=== PATIENT | male | born 1965 | race Caucasian/White ===

== ENCOUNTER → 2022-04-17 09:25 | Outpatient (BNVA) | payer OTHER, MEDICAID, SELFPAY | PROVIDERS: Visit Provider Family Medicine | DX: E11.22 Type 2 diabetes mellitus with diabetic chronic kidney disease (principal); N18.30 Chronic kidney disease, stage 3 unspecified; Z79.4 Long term (current) use of insulin; E11.9 Type 2 diabetes mellitus without complications; I10 Essential (primary) hypertension; E78.5 Hyperlipidemia, unspecified; K21.9 Gastro-esophageal reflux disease without esophagitis; Z23 Encounter for immunization; Z86.73 Personal history of transient ischemic attack (TIA), and cerebral infarction without residual deficits | CPT/HCPCS: 80053; 80061; 82043; 83036; 85025 ==

== ENCOUNTER 2022-04-19 08:21 | Emergency (ER) | payer MEDICARE, MEDICAID, SELFPAY ==
[2022-04-19 08:35] VITALS: BP 159/78; PULSE 56; RESP 18; TEMP 36.5; O2SAT 96; BMI 30.8
--- NOTE | 2022-04-19 08:54 | XR_ITS ---
WS: [id number] Exam: XR ribs RT mn 3V w CXR1V [id number] Date/Time of Exam: 04/19/2022 9:34 AM Reason For Exam: pain/cough No acute right rib fracture. The right lung is fully inflated and clear. No pleural or pulmonary reac tive changes are seen. There appear to be epidural catheters in the thoracic spinal canal. The lungs are bilaterally clear. Normal cardiomediastinal silhouette. No pleural effusions. XR/XR ribs RT mn 3V w CXR1V [id number] IMPRESSION: 1. No acute right rib fracture or pneumothorax. 2. No acute cardiopulmonary process identified.
--- NOTE | 2022-04-19 08:54 | ED_ITS ---
HPI - General Adult General: Chief complaint: General Medical Stated complaint: Right side chest/ rib pain Time Seen by Provider: 04/19/22 08:26 Source: patient Mode of arrival: ambulatory History of Present Illness: 56-year-old male presents emergency room with complaint of right lower rib pain. He has a little cough with it as well as not particularly been short of breath began 2 weeks ago when he hit his lower ribs on a washer while bending over. It seemed to get better and then worsened again. Denies any hemoptysis no fever sweats or chills no left-sided chest pain pain is localized and reproducible with palpation of the right lower lip ribs. There is no radiation. Other than movement palpation has not noticed anything that exacerbates or relieves it. Onset (ago): day(s) Location: chest Radiation: non-radiation Severity: moderate Quality: sharp Pain Consistency: constant Relieving factors: rest Exacerbating factors: movement Associated symptoms: Reports chest pain; Deny confusion, cough, diaphoresis, decreased appetite, dyspnea, fevers/chills, headache(s), malaise, nausea, rash, palpitations, seizures, short of breath, syncope or vomiting Treatments prior to arrival: none Review of Systems Const: Denies: fever(s), fatigue, malaise or diaphoresis ENMT: Denies: throat pain, ear or mastoid pain, nasal discharge or nasal congestion Card: Reports: chest pain; Denies: palpitations, irregular heart rhythm, edema or syncope Resp: Denies: dyspnea GI: Denies: abdominal pain, nausea or vomiting : Denies: flank pain, difficulty urinating, dysuria, urinary frequency or urinary urgency Musc: Denies: neck pain or back pain Skin/Breast: Denies: rash Neuro: Denies: headache(s) or confusion PFS ED PFSH: Medical History (Updated 04/19/22 @ 10:41 by Red Nettles DO) Asthma Benign essential HTN CAD (coronary artery disease) Diabetic neuropathy DM II (diabetes mellitus, type II), controlled Dyslipidemia History of stroke History of TIA (transient ischemic attack) Muscle cramps Proteinuria Seasonal allergies Stage 3b chronic kidney disease (CKD) Surgical History (Updated 03/20/22 @ 10:51 by Rossi Abbasi DO) H/O arthroscopy of left knee History of ankle surgery Right History of appendectomy History of coronary artery stent placement History of hernia repair Right inguinal History of tonsillectomy Hx laparoscopic cholecystectomy Social History (Updated 03/20/22 @ 10:40 by Yamilet Holman LPN) Smoking and tobacco status: current every day smoker Alcohol intake: never Caregiver/support person: Yes Lives independently: Yes Household members: spouse Physical Exam Const: COMMON NORMALS: no acute distress GENERAL APPEARANCE: cooperative and comfortable ORIENTATION/CONSCIOUSNESS: Yes awake, Yes oriented to person, Yes oriented to place and Yes oriented to time HENMT: COMMON NORMALS: normocephalic, atraumatic and hearing grossly normal bilaterally HEAD & SCALP: normocephalic and atraumatic Chest: OTHER: Reproducible pain of the lower anterior ribs at the axillary line on the right only. No crepitus no adventitious lung sounds auscultated in that region Resp: COMMON NORMALS: normal respiratory effort, No retractions, No use of accessory muscles and clear to auscultation bilaterally AUSCULTATION: clear to auscultation bilaterally Cardio: COMMON NORMALS: regular rate, regular rhythm and No murmurs present (Cardio) RATE: regular rate RHYTHM: regular rhythm GI: COMMON NORMALS: Soft to palpation and No hepatosplenomegaly present AUSCULTATION: Yes normoactive bowel sounds PALPATION: Yes Soft to palpation, No Tenderness to palpation present (GI), No Guarding due to palpation present (GI) and Yes No hepatosplenomegaly present Extremity: COMMON NORMALS: normal to inspection, capillary refill normal, no clubbing, cyanosis or edema, no calf tenderness and no pedal edema Neuro: SENSORIUM/ORIENTATION: Yes oriented to person, Yes oriented to place and Yes oriented to time Skin: COMMON NORMALS: no rashes or lesions noted GENERAL SKIN EXAM: no rashes or lesions noted Course Vital Signs: Vital signs: Vital Signs Temperature 97.7 F 04/19/22 11:02 Pulse Rate 62 04/19/22 11:02 Respiratory Rate 18 04/19/22 11:02 Blood Pressure 140/70 04/19/22 11:02 Pulse Oximetry 96 04/19/22 11:02 [facility] - General Adult Medical Decision Making No evidence of rib fracture pneumonia pneumothorax. EKG is unremarkable. Rib x-rays were negative for fracture we will discharge home ice anti-inflammatories follow-up with primary care if not improving Medical Records I reviewed the patient's medical records. Lab Data I reviewed the patient's lab results. Radiology Impressions Ribs X-Ray 04/19/22 08:54 IMPRESSION: 1. No acute right rib fracture or pneumothorax. 2. No acute cardiopulmonary process identified. Discharge Plan Discharge Patient Disposition: Home Clinical Impression: Rib pain on right side Condition: Stable Prescriptions: New diclofenac sodium 75 mg tablet,delayed release (DR/EC) 75 mg PO Q12H PRN (Reason: pain) Qty: 20 0RF No Action carvedilol 25 mg tablet 25 mg PO DAILY Rx Instructions: must administer with a meal/food Farxiga 10 mg tablet 10 mg PO DAILY hydralazine 50 mg tablet 50 mg PO BID clonidine HCl 0.2 mg tablet 0.2 mg PO BID rosuvastatin 40 mg tablet 40 mg PO DAILY clopidogrel 75 mg tablet 75 mg PO DAILY isosorbide dinitrate 30 mg tablet 30 mg PO BID Rx Instructions: allow nitrate-free interval of 12-14 hrs per 24-hr period ezetimibe 10 mg tablet 10 mg PO DAILY mecobalamin (vitamin B12) 1,000 mcg tablet,chewable 1,000 mcg PO DAILY fluticasone propionate 50 mcg/actuation spray,suspension 2 spray intranasal DAILY Rx Instructions: administer into each nostril nitroglycerin [Nitrostat] 0.3 mg tablet, sublingual 0.3 mg sublingual Q5M PRN Rx Instructions: do not exceed 3 doses per episode insulin glargine [Lantus Solostar U-100 Insulin] 100 unit/mL (3 mL) insulin pen See Rx Instructions SUBCUT BID Rx Instructions: 10units in AM and 23 units at night subcutaneously twice a day; insulin aspart U-100 [Novolog Flexpen U-100 Insulin] 100 unit/mL (3 mL) insulin pen 8 unit SUBCUT TID Ozempic 0.25 mg or 0.5 mg(2 mg/1.5 mL) pen injector 0.5 mg SUBCUT .weekly montelukast 10 mg tablet 10 mg PO DAILY Qty: 30 3RF atenolol 50 mg tablet 50 mg PO DAILY Qty: 30 0RF lisinopril 40 mg tablet 40 mg PO DAILY Qty: 30 0RF gabapentin 300 mg capsule 300 mg PO TID Qty: 90 0RF albuterol sulfate [ProAir HFA] 90 mcg/actuation HFA aerosol inhaler 2 puff inhalation QID PRN (Reason: shortness of breath or wheezing) Qty: 8.5 0RF metoclopramide HCl [Reglan] 10 mg tablet 10 mg PO DAILY PRN (Reason: nausea and vomiting) Qty: 30 0RF cyclobenzaprine 10 mg tablet 10 mg PO TID PRN (Reason: muscle spasm) Qty: 90 0RF flu vacc [id number] 6mos up(PF) 60 mcg (15 mcg x 4)/0.5 mL syringe 0.5 ml IM ONCE PRN (Reason: vaccine) Qty: 0.5 0RF (DME) Blood Glucose Test Strip See Rx Instructions .MEDSUPPLY Qty: 100 5RF Rx Instructions: As directed (DME) blood-glucose meter Misc See Rx Instructions .MEDSUPPLY Qty: 1 0RF Rx Instructions: test qid (DME) lancets 25 gauge misc See Rx Instructions .MEDSUPPLY Qty: 100 5RF Rx Instructions: As directed omeprazole 40 mg capsule,delayed release(DR/EC) 40 mg PO DAILY Qty: 30 0RF Discharge Orders: Discharge ED (Routine); Ordered 04/19/22 Ordered By: Red Nettles Discharge Diet: Usual diet Discharge Activity: Resume usual activity Patient Instructions: Opioid Safety, Pain Management Activity Restrictions/Additional Instructions: Rest ice anti-inflammatories as needed. Coding Level of Care Code ED Engagement Quality Consultant for Laila Dominguez
--- NOTE | 2022-04-19 08:55 | ECG_ITS ---
[facility] Test Date: 2022-04-19 Pat Name: Sarbjit Fletcher Department: Room: Gender: Male Consulting Practice Director: : 1965 Requested By: Red Pizarro Order Number: [id number] Marely MD: Christina Gonzáles M.D. Measurements Intervals [place] Rate: 59 P: 56 IN: 156 QRS: 19 QRSD: 94 T: 14 QT: 387 QTc: 385 Interpretive Statements SINUS BRADYCARDIA NONSPECIFIC T-WAVE ABNORMALITY No previous ECG available for comparison Electronically Signed On 04-19-2022 18:04:30 CDT by Christina Gonzáles M.D. [id number]
[2022-04-19] MEDS: ketorolac 30 mg/mL INJ IVP (09:11)
[2022-04-19 09:21] VITALS: BP 159/78; PULSE 56; RESP 18; TEMP 36.5; O2SAT 96
[2022-04-19 11:02] VITALS: BP 140/70; PULSE 62; RESP 18; TEMP 36.5; O2SAT 96
== END 2022-04-19 11:03 | disposition home or self-care (01) ==
PROVIDERS: Emergency Provider Family Medicine
DX: R07.81 Pleurodynia (principal); Z79.02 Long term (current) use of antithrombotics/antiplatelets; Z79.4 Long term (current) use of insulin; I25.10 Atherosclerotic heart disease of native coronary artery without angina pectoris; E11.40 Type 2 diabetes mellitus with diabetic neuropathy, unspecified; E78.5 Hyperlipidemia, unspecified; Z86.73 Personal history of transient ischemic attack (TIA), and cerebral infarction without residual deficits; I12.9 Hypertensive chronic kidney disease with stage 1 through stage 4 chronic kidney disease, or unspecified chronic kidney disease; E11.22 Type 2 diabetes mellitus with diabetic chronic kidney disease; N18.32 Chronic kidney disease, stage 3b; F17.210 Nicotine dependence, cigarettes, uncomplicated
CPT/HCPCS: 71101; 93005; 96374; 99284; J1885

== ENCOUNTER → 2022-04-25 12:52 | Outpatient (BNVA) | payer MEDICARE, MEDICAID, SELFPAY | PROVIDERS: PCP Family Medicine; Referring Provider Family Medicine; Visit Provider Nurse Practitioner | DX: I69.310 Attention and concentration deficit following cerebral infarction (principal); G47.33 Obstructive sleep apnea (adult) (pediatric); F17.200 Nicotine dependence, unspecified, uncomplicated | CPT/HCPCS: 99204 ==

== ENCOUNTER → 2022-05-08 10:10 | Outpatient (BNVA) | payer MEDICARE, MEDICAID, SELFPAY | PROVIDERS: PCP Family Medicine; Referring Provider Nurse Practitioner; Visit Provider Specialist | DX: R41.82 Altered mental status, unspecified (principal) | CPT/HCPCS: 95812 ==

== ENCOUNTER → 2022-06-14 11:47 | Outpatient (BNVA) | payer MEDICARE, MEDICAID, SELFPAY | PROVIDERS: PCP Family Medicine; Visit Provider Internal Medicine | DX: I25.10 Atherosclerotic heart disease of native coronary artery without angina pectoris (principal); I12.9 Hypertensive chronic kidney disease with stage 1 through stage 4 chronic kidney disease, or unspecified chronic kidney disease; E11.22 Type 2 diabetes mellitus with diabetic chronic kidney disease; F17.200 Nicotine dependence, unspecified, uncomplicated; N18.32 Chronic kidney disease, stage 3b; Z79.4 Long term (current) use of insulin; E78.5 Hyperlipidemia, unspecified; I71.40 Abdominal aortic aneurysm, without rupture, unspecified; Z86.73 Personal history of transient ischemic attack (TIA), and cerebral infarction without residual deficits | CPT/HCPCS: 93005; 99204 ==

== ENCOUNTER 2022-06-27 08:03 | Outpatient (CLI) | payer MEDICARE, MEDICAID, SELFPAY ==
--- NOTE | 2022-06-27 08:30 | USCV_ITS ---
Sarbjit Fletcher Age: 57 Gender: M : 1965 Exam Date: 06/27/2022 08:15 Ordering Phys: Gerard Tubbs M.D ([email or web address]) Technologist: MARY [place] [facility] [place]: AAA HISTORY: Diameter (cm) AP x Transverse x Length Velocity (cm/s) Waveform Prox Aorta: 1.96 x 2.30 x 77.30 Triphasic Mid Aorta: 3.32 x 3.43 x 6.42 66.90 Triphasic Distal Aorta: 1.89 x 2.57 x 87.60 Triphasic Right Iliac Prox: 1.30 x 1.39 x 218.20 Triphasic Left Iliac Prox: 1.07 x 1.42 x 200.00 Triphasic Stent Prox Landing x x Aneurysmal Sac Max x x Lt Lat Sac Dim Rt Lat Sac Dim Stent Dist Landing x x Right Iliac Stent x x Left Iliac Stent x x Right Renal Art Left Renal Art FINDINGS: CONCLUSIONS Aneurysmal Mid abdominal aorta measuring 3.3 x 3.4 x 6.4cm AP x transverse x CC. This could be further evaluated with CTA. Normal iliac arteries Zane Fulton MD (Electronically Signed) Final Date: 27 June 2022 08:40 S
== END 2022-06-27 08:04 | disposition home or self-care (01) ==
LOC: RAD 08:05
PROVIDERS: PCP Family Medicine; Visit Provider Internal Medicine
DX: I71.40 Abdominal aortic aneurysm, without rupture, unspecified (principal)
CPT/HCPCS: 93978

== ENCOUNTER → 2022-07-09 08:48 | Outpatient (BNVA) | payer MEDICARE, MEDICAID, SELFPAY | PROVIDERS: PCP Family Medicine; Visit Provider Podiatrist Foot & Ankle Surgery | DX: I73.9 Peripheral vascular disease, unspecified (principal); B35.1 Tinea unguium; G62.9 Polyneuropathy, unspecified; M21.611 Bunion of right foot; M21.612 Bunion of left foot; M20.41 Other hammer toe(s) (acquired), right foot; M20.42 Other hammer toe(s) (acquired), left foot; L84 Corns and callosities; E11.8 Type 2 diabetes mellitus with unspecified complications; Z79.4 Long term (current) use of insulin | CPT/HCPCS: 11056; 11721; 99204 ==

== ENCOUNTER 2022-07-12 09:16 | Outpatient (CLI) | payer MEDICARE, MEDICAID, SELFPAY ==
--- NOTE | 2022-07-12 09:45 | CT_ITS ---
WS: [id number] LDCT LUNG CANCER SCREENING HISTORY: screening TECHNIQUE: Axial imaging performed from the apices to 1 cm below the costophrenic angles. Coronal and sagittal reformats are submitted with axial MIP series. All CT scans at [facility] use at least one of these dose optimization techniques: automated exposure control; mA and/or kV adjustment per patient size (includes targeted exams where dose is matched to clinical indication); or iterativ e reconstruction. DLP: 73.71 mGy.cm DIvol: Mean CTDIvol: 1.60 (mGy) COMPARISON: None available. Diagnostic quality: Satisfactory Lung Nodules: Multiple subcentimeter pulmonary nodules. Largest nodule 7 mm RIGHT upper lobe along th e fissure. These are typically benign. 6 mm pleural-based nodule along the peripheral fissure RIGHT m id lung. Additional fissure along the minor fissure measures 5 mm. LEFT lower lobe nodule measures 5 mm. Endobronchial soft tissue distal LEFT trachea. Lungs: Mild interstitial peripheral thickening. Heart: Moderate cardiomegaly. No pericardial effusion. Moderate calcification involving the LEFT baljit nary arteries. Other findings: Mild atherosclerosis aorta. 10 mm RIGHT adrenal nodule is probably an adenoma. Mild thickening of the LEFT adrenal gland. Dorsal column stimulator. CT/CT lung screening [id number] IMPRESSION: LUNG-RADS: 3-Probably Benign FOLLOW UP: 6 Month LDCT OTHER FINDINGS (S MODIFIER): None. 1. Multiple perifissural nodules are typically benign. 2. Endobronchial soft tissue in the distal LEFT trachea is probably retained s ecretions. This can also be reevaluated in 6 months.
== END 2022-07-12 09:17 | disposition home or self-care (01) ==
PROVIDERS: PCP Family Medicine; Visit Provider Family Medicine
DX: Z12.2 Encounter for screening for malignant neoplasm of respiratory organs (principal); F17.219 Nicotine dependence, cigarettes, with unspecified nicotine-induced disorders
CPT/HCPCS: 71271

== ENCOUNTER 2022-07-16 14:50 | Outpatient (CLI) | payer MEDICARE, MEDICAID, SELFPAY ==
--- NOTE | 2022-07-16 15:15 | USCV_ITS ---
Sarbjit Fletcher Age: 57 Gender: M : 1965 Exam Date: 07/16/2022 15:09 Ordering Phys: Gerard Tubbs M.D ([email or web address]) Technologist: [place] [facility] [place]: hx cad aorta insuff BP: / HR: 76 Rhythm: Sinus Technical Quality: Adequate MEASUREMENTS (Male / Female) Normal Values 2D ECHO LV Diastolic Diameter PLAX 4.3 cm 4.2 - 5.9 / 3.9 - 5.3 cm LV Systolic Diameter PLAX 2.9 cm IVS Diastolic Thickness 1.3 cm 0.6 - 1.0 / 0.6 - 0.9 cm IVS Systolic Thickness 1.6 cm LVPW Diastolic Thickness 1.2 cm 0.6 - 1.0 / 0.6 - 0.9 cm LVPW Systolic Thickness 1.4 cm LVOT Diameter 2.1 cm LV Ejection Fraction 2D Teich 59.9 % LV Ejection Fraction MOD 2C 61.1 % LV Ejection Fraction 2C AL 59.9 % LA Diameter 4.3 cm Aorta at Sinotubular Diameter 3.5 cm M-MODE RV Diastolic Diameter MM 1.7 cm Aortic Annulus Diameter 4.2 cm LA Ao Ratio MM 1.0 MV E Point Septal Separation 2.1 cm DOPPLER AV Peak Velocity 130.0 cm/s LVOT Peak Velocity 92.0 cm/s AV Area Cont Eq vti 3.3 cm squared AV Area Cont Eq pk 2.4 cm squared MV Area PHT 5.0 cm squared Mitral E to A Ratio 0.6 MV E' Velocity 30.0 cm/s Mitral E to MV E' Ratio 10.7 Mitral E to LV E' Lateral Ratio 8.9 Mitral E to LV E' Septal Ratio 13.6 TR Peak Velocity 237.3 cm/s TR Peak Gradient 22.5 mmHg TV Peak E Velocity 67.0 cm/s Right Atrial Pressure 3.0 mmHg Pulmonary Artery Systolic Pressu 25.5 mmHg RV Acceleration Time 0.2 s FINDINGS Left Ventricle Left ventricle is normal in size. LV systolic function is normal with EF 55 to 60%. No regional wall plane abnormalities are seen. Grade 1 diastolic dysfunction Right Ventricle Normal in size and function Right Atrium Normal in size Left Atrium Normal in size Mitral Valve Structurally normal mitral valve. Aortic Valve Structurally normal aortic valve. No significant stenosis. Mild aortic regurgitation. Tricuspid Valve Trace tricuspid regurgitation. Insufficient TR jet to calculate RVSP Pulmonic Valve Not well visualized Pericardium Normal Aorta Aortic root is mildly dilated IVC Not well visualized CONCLUSIONS Technically limited quality echocardiogram because of poor ultrasonic windows. LV systolic function is normal with EF 55 to 60%. Grade 1 diastolic dysfunction Mild aortic regurgitation Trace tricuspid regurgitation Aortic root is mildly dilated No comparison studies are available Gerard Tubbs MD (Electronically Signed) Final Date: 20 July 2022 13:09 S
== END 2022-07-16 14:51 | disposition home or self-care (01) ==
PROVIDERS: PCP Family Medicine; Visit Provider Internal Medicine
DX: R06.02 Shortness of breath (principal); I08.2 Rheumatic disorders of both aortic and tricuspid valves
CPT/HCPCS: 93306

== ENCOUNTER → 2022-07-19 08:59 | Outpatient (BNVA) | payer OTHER, MEDICAID, SELFPAY | PROVIDERS: PCP Family Medicine; Visit Provider Family Medicine | DX: E11.22 Type 2 diabetes mellitus with diabetic chronic kidney disease (principal); N18.30 Chronic kidney disease, stage 3 unspecified; Z79.4 Long term (current) use of insulin; I10 Essential (primary) hypertension; M70.62 Trochanteric bursitis, left hip; N18.32 Chronic kidney disease, stage 3b; F17.219 Nicotine dependence, cigarettes, with unspecified nicotine-induced disorders; R91.1 Solitary pulmonary nodule; J45.40 Moderate persistent asthma, uncomplicated | CPT/HCPCS: 80053; 83036 ==

== ENCOUNTER → 2022-07-27 08:40 | Outpatient (BNVA) | payer MEDICARE, MEDICAID, SELFPAY | PROVIDERS: PCP Family Medicine; Visit Provider Internal Medicine Pulmonary Disease | DX: J45.40 Moderate persistent asthma, uncomplicated; G47.31 Primary central sleep apnea; R06.09 Other forms of dyspnea; I25.10 Atherosclerotic heart disease of native coronary artery without angina pectoris; F17.200 Nicotine dependence, unspecified, uncomplicated; E87.5 Hyperkalemia; R91.8 Other nonspecific abnormal finding of lung field; F17.210 Nicotine dependence, cigarettes, uncomplicated | CPT/HCPCS: 36415; 80048; 82785; 85025; 86003; 99204 ==

== ENCOUNTER → 2022-08-07 09:18 | Outpatient (BNVA) | payer MEDICARE, MEDICAID, SELFPAY | PROVIDERS: PCP Family Medicine; Visit Provider Anesthesiology Pain Medicine | DX: M16.12 Unilateral primary osteoarthritis, left hip (principal) | CPT/HCPCS: 99204 ==

== ENCOUNTER → 2022-08-23 13:36 | Outpatient (BNVA) | payer MEDICARE, MEDICAID, SELFPAY | PROVIDERS: PCP Family Medicine; Visit Provider Anesthesiology Pain Medicine | DX: M16.12 Unilateral primary osteoarthritis, left hip (principal) | CPT/HCPCS: 20610; 77002; J1030; J3490 ==

== ENCOUNTER → 2022-09-05 09:32 | Outpatient (BNVA) | payer MEDICARE, MEDICAID, SELFPAY | PROVIDERS: PCP Family Medicine; Referring Provider Anesthesiology Pain Medicine; Visit Provider Orthopaedic Surgery | DX: M16.12 Unilateral primary osteoarthritis, left hip (principal) | CPT/HCPCS: 73502; 99203 ==

== ENCOUNTER → 2022-09-12 11:36 | Outpatient (BNVA) | payer MEDICARE, MEDICAID, SELFPAY | PROVIDERS: PCP Family Medicine; Visit Provider Anesthesiology Pain Medicine | DX: M54.9 Dorsalgia, unspecified (principal); M16.12 Unilateral primary osteoarthritis, left hip; M79.604 Pain in right leg; M79.605 Pain in left leg | CPT/HCPCS: 72110; 99214 ==

== ENCOUNTER → 2022-09-17 10:14 | Outpatient (BNVA) | payer MEDICARE, MEDICAID, SELFPAY | PROVIDERS: PCP Family Medicine; Visit Provider Anesthesiology Pain Medicine | DX: M54.12 Radiculopathy, cervical region (principal); M16.12 Unilateral primary osteoarthritis, left hip; M54.9 Dorsalgia, unspecified | CPT/HCPCS: 11056; 11721; 72040; 99214 ==

== ENCOUNTER → 2022-09-24 09:40 | Outpatient (BNVA) | payer MEDICARE, MEDICAID, SELFPAY | PROVIDERS: PCP Family Medicine; Visit Provider Family Medicine | DX: E78.5 Hyperlipidemia, unspecified (principal); I10 Essential (primary) hypertension; N18.32 Chronic kidney disease, stage 3b; R25.2 Cramp and spasm; E11.40 Type 2 diabetes mellitus with diabetic neuropathy, unspecified; F17.200 Nicotine dependence, unspecified, uncomplicated; G47.31 Primary central sleep apnea; I71.40 Abdominal aortic aneurysm, without rupture, unspecified; J45.40 Moderate persistent asthma, uncomplicated; Z86.73 Personal history of transient ischemic attack (TIA), and cerebral infarction without residual deficits; I25.10 Atherosclerotic heart disease of native coronary artery without angina pectoris; Z76.89 Persons encountering health services in other specified circumstances | CPT/HCPCS: 80048; 80061; 81003; 82043; 83721; 83735 ==

== ENCOUNTER → 2022-10-08 08:59 | Outpatient (BNVA) | payer MEDICARE, MEDICAID, SELFPAY | PROVIDERS: PCP Family Medicine; Visit Provider Family Medicine | DX: R25.2 Cramp and spasm (principal); R11.0 Nausea; I10 Essential (primary) hypertension; Z86.73 Personal history of transient ischemic attack (TIA), and cerebral infarction without residual deficits | CPT/HCPCS: 80048; 83735 ==

== ENCOUNTER → 2022-10-15 08:41 | Outpatient (BNVA) | payer MEDICARE, MEDICAID, SELFPAY | PROVIDERS: PCP Family Medicine; Visit Provider Anesthesiology Pain Medicine | DX: M16.12 Unilateral primary osteoarthritis, left hip (principal); G89.29 Other chronic pain; M54.50 Low back pain, unspecified | CPT/HCPCS: 99214 ==

== ENCOUNTER 2022-10-16 18:42 | Emergency (ER) | payer MEDICARE, MEDICAID, SELFPAY ==
--- NOTE | 2022-10-16 18:48 | XRR_ITS ---
PROCEDURE INFORMATION: Exam: XR Left Ankle Exam date and time: 10/16/2022 6:57 PM Age: 57 years old Clinical indication: Injury or trauma; Fall; Blunt trauma; Ankle; Left TECHNIQUE: Imaging protocol: Radiologic exam of the left ankle. Views: 3 or more views. COMPARISON: No relevant prior studies available. FINDINGS: Bones/joints: Normal. Soft tissues: Chronic benign soft tissue calcifications at the fibular tip. XR/XR ankle LT min 3V* [id number] IMPRESSION: 1. Negative for fracture or dislocation 2. Chronic benign soft tissue calcifications at the fibular tip.
[2022-10-16 18:56] VITALS: BP 198/85; PULSE 73; RESP 18; TEMP 36.6; O2SAT 96
--- NOTE | 2022-10-16 20:01 | ED_ITS ---
HPI - Extremity Problem General: Chief complaint: Extremity Injury, Lower Stated complaint: Left Ankle injury Time Seen by Provider: 10/16/22 20:01 History of Present Illness: 57-year-old male patient comes in today for complaints of injury to the left ankle. On exam patient appears in mild to moderate pain. No obvious deformity is noted to the ankle. Patient reports pain with weightbearing. Patient has a history of chronic back pain, diabetes mellitus, gastroparesis, GERD, asthma, COPD, hypertension. Associated symptoms: Deny chest pain, fever(s) or rash Review of Systems General: Reports: 10 or more systems reviewed and unremarkable except in HPI and below Const: Denies: fever(s) Card: Denies: chest pain Resp: Denies: dyspnea GI: Denies: vomiting : Denies: difficulty urinating Musc: Reports: extremity pain Skin/Breast: Denies: rash PFSH ED PFSH: Medical History AAA (abdominal aortic aneurysm) Asthma Benign essential HTN CAD (coronary artery disease) Complex sleep apnea syndrome Diabetic neuropathy Dyslipidemia GERD (gastroesophageal reflux disease) History of stroke Insulin dependent diabetes mellitus Osteoarthritis, hip, bilateral Presence of neurostimulator Proteinuria Seasonal allergies Smoker Stage 3b chronic kidney disease (CKD) Surgical History History of ankle surgery Right History of appendectomy History of arthroscopy of left knee History of carpal tunnel release of both wrists History of cholecystectomy History of coronary artery stent placement History of hernia repair Right inguinal History of tonsillectomy Family History Other CAD (coronary artery disease) Cancer Chronic kidney disease (CKD) Diabetes Denies family history of Stroke Social History Smoking and tobacco status: current every day smoker cigarettes Packs smoked per day: 1 Years cigarettes smoked: 42 [ Other cigarette details: started at age 15] Alcohol intake: never Substance/Drug Use: never Caregiver/support person: Yes Lives independently: Yes Household members: spouse Marital status: Number of children: 2 service: No Current occupational status: unemployed Agree to transfusion: Yes Physical Exam Const: COMMON NORMALS: alert HENMT: COMMON NORMALS: normocephalic HEAD & SCALP: normocephalic Neck/C-Spine: COMMON NORMALS: full ROM Resp: COMMON NORMALS: normal respiratory effort Cardio: COMMON NORMALS: regular rate RATE: regular rate Back/Pelvis: COMMON NORMALS: thoracic and lumbar spine normal to inspection Extremity: LEFT LOWER EXTREMITY: Yes ankle joint (Lateral tenderness, moderate swelling, distal pulses and sensation intact) Neuro: SENSORIUM/ORIENTATION: Yes alert Skin: COMMON NORMALS: turgor normal GENERAL SKIN EXAM: turgor normal Course Vital Signs: Vital signs: Vital Signs Temperature 97.8 F 10/16/22 18:56 Pulse Rate 73 10/16/22 18:56 Respiratory Rate 18 10/16/22 18:56 Blood Pressure 198/85 10/16/22 18:56 Pulse Oximetry 96 10/16/22 18:56 Oxygen Delivery Me thod Room Air 10/16/22 18:56 MDM - Extremity (Nontraumatic) Medical Decision Making 57-year-old male patient comes in today for complaints of injury to the left ankle. On exam patient has lateral tenderness with some moderate swelling. Respirations are even lungs are clear to auscultation. Skin is warm and dry. Pulses and sensation are intact. Differential diagnosis includes but not limited to fracture, sprain, dislocation. X-rays noted no signs of fracture or dislocation. Reviewed exam with patient with recommendations for treatment and follow-up. Case management was requested to set patient up with follow-up with podiatry per patient request due to significance of pain. Patient was placed in crutches and an elastic bandage. Lab Data Radiology Impressions Ankle X-Ray 10/16/22 18:48 IMPRESSION: 1. Negative for fracture or dislocation 2. Chronic benign soft tissue calcifications at the fibular tip. Discharge Plan Discharge Patient Disposition: Home Clinical Impression: Ankle sprain and strain Condition: Stable Prescriptions: New hydrocodone-acetaminophen 5-325 mg tablet 1 tab PO Q8H PRN (Reason: pain (scale score 7-10)) Qty: 7 0RF No Action (DME) blood-glucose meter Misc See Rx Instructions .MEDSUPPLY Qty: 1 0RF Rx Instructions: test qid baclofen 10 mg tablet 10 mg PO BID PRN (Reason: spasm) Qty: 60 0RF metoclopramide HCl [Reglan] 10 mg tablet 10 mg PO DAILY PRN (Reason: nausea and vomiting) Qty: 30 0RF lisinopril 40 mg tablet 40 mg PO DAILY Qty: 30 1RF insulin glargine [Lantus Solostar U-100 Insulin] 100 unit/mL (3 mL) insulin pen See Rx Instructions SUBCUT BID Rx Instructions: 23units in AM and 15units at night subcutaneously twice a day; cetirizine [Zyrtec] 10 mg tablet 10 mg PO DAILY PRN (Reason: allergy symptoms) Qty: 90 0RF (DME) CPAP at 11 with C-flex of 3 on room air with CPAP supplies and tubing See Rx Instructions .Route .MEDSUPPLY Qty: 1 0RF Rx Instructions: As directed (DME) diabetic shoes wtih 3 inserts See Rx Instructions .Route .MEDSUPPLY Qty: 1 0RF Rx Instructions: As directed fluticasone propionate 50 mcg/actuation spray,suspension 2 spray intranasal DAILY PRN (Reason: allergy symptoms) Rx Instructions: administer into each nostril naproxen 500 mg tablet 500 mg PO BID PRN (Reason: pain) Qty: 30 0RF albuterol sulfate [ProAir HFA] 90 mcg/actuation HFA aerosol inhaler 2 puff inhalation QID PRN (Reason: shortness of breath or wheezing) Qty: 8.5 2RF (DME) Blood Glucose Test Strip See Rx Instructions .MEDSUPPLY Qty: 100 5RF Rx Instructions: As directed clopidogrel 75 mg tablet 75 mg PO DAILY Qty: 90 0RF Farxiga 10 mg tablet 10 mg PO DAILY Qty: 90 0RF insulin aspart U-100 [Novolog FlexPen U-100 Insulin] 100 unit/mL (3 mL) insulin pen 8 unit SUBCUT TID Qty: 15 0RF (DME) lancets 25 gauge misc See Rx Instructions .MEDSUPPLY Qty: 200 0RF Rx Instructions: As directed nitroglycerin [Nitrostat] 0.3 mg tablet, sublingual 0.3 mg sublingual Q5M PRN (Reason: chest pain) Qty: 30 0RF Rx Instructions: do not exceed 3 doses per episode omeprazole 40 mg capsule,delayed release(DR/EC) 40 mg PO DAILY Qty: 90 0RF rosuvastatin 40 mg tablet 40 mg PO DAILY Qty: 90 0RF gabapentin 300 mg capsule 300 mg PO TID Qty: 270 0RF Ozempic 0.25 mg or 0.5 mg(2 mg/1.5 mL) pen injector 1 mg SUBCUT .weekly Qty: 1.5 2RF amlodipine 10 mg tablet 10 mg PO DAILY Qty: 90 3RF cyclobenzaprine 10 mg tablet 10 mg PO TID PRN (Reason: muscle spasm) Qty: 90 0RF budesonide-formoterol [Symbicort] 80-4.5 mcg/actuation HFA aerosol inhaler See Rx Instructions .ROUTE .COMPLEX Qty: 10.2 2RF Dose Instruction: INHALE 2 PUFFS BY MOUTH TWICE A DAY Rx Instructions: INHALE 2 PUFFS BY MOUTH TWICE A DAY hydralazine 50 mg tablet See Rx Instructions .ROUTE .COMPLEX Qty: 60 2RF Dose Instruction: TAKE 1 TABLET BY MOUTH TWICE A DAY Rx Instructions: TAKE 1 TABLET BY MOUTH TWICE A DAY atenolol 50 mg tablet See Rx Instructions .ROUTE .COMPLEX Qty: 90 0RF Dose Instruction: TAKE ONE TABLET BY MOUTH DAILY Rx Instructions: TAKE ONE TABLET BY MOUTH DAILY montelukast 10 mg tablet See Rx Instructions .ROUTE .COMPLEX Qty: 90 0RF Dose Instruction: TAKE ONE TABLET BY MOUTH DAILY Rx Instructions: TAKE ONE TABLET BY MOUTH DAILY clonidine HCl 0.2 mg tablet 0.2 mg PO TID Qty: 90 0RF Discharge Orders: Discharge ED (Routine); Ordered 10/16/22 Ordered By: Riley Landa Referrals: Nessa Barger MD [Primary Care Provider] - Discharge Diet: Usual diet Discharge Activity: Increase activity as tolerated Patient Instructions: Ankle Sprain (ED), Opioid Safety Activity Restrictions/Additional Instructions: Activity as tolerated. Use acetaminophen and/or ibuprofen to control pain. Use hydrocodone for severe pain. Follow-up with primary care as needed. Case management will contact you with follow-up appointment with brand marketing specialist for further evaluation and treatment. Return to ED for new concerns. Coding Level of Care Code ED Bandage Winding Machine Operator for Laila Dominguez
[2022-10-16] MEDS: HYDROcodone-acetaminophen 7.5-325 mg Tablet 1 TAB PO (20:25)
--- NOTE | 2022-10-17 08:51 | DCPLANNER ---
Addendum entered by Zita Andrade 10/24/22 11:29: Patient had a follow up appointment scheduled with ortho - patient did attend appointment. Addendum entered by Zita Andrade 10/17/22 13:03: Patient has a follow up appointment scheduled for Wednesday, October 19, 2022 at 9:[address] Coleman at ortho. Original Note: southeast regional sales manager had message to schedule a follow up appointment for patient with podiatry. southeast regional sales manager sent patients information to the front office staff at podiatry. Patients information will be printed and reviewed. Clinic will call patient with appointment information.
== END 2022-10-16 20:31 | disposition home or self-care (01) ==
PROVIDERS: Emergency Provider Nurse Practitioner Family; PCP Family Medicine
DX: S93.402A Sprain of unspecified ligament of left ankle, initial encounter (principal); S96.912A Strain of unspecified muscle and tendon at ankle and foot level, left foot, initial encounter; Z79.4 Long term (current) use of insulin; Z79.02 Long term (current) use of antithrombotics/antiplatelets; F17.210 Nicotine dependence, cigarettes, uncomplicated; I25.10 Atherosclerotic heart disease of native coronary artery without angina pectoris; E78.5 Hyperlipidemia, unspecified; Z86.73 Personal history of transient ischemic attack (TIA), and cerebral infarction without residual deficits; E11.22 Type 2 diabetes mellitus with diabetic chronic kidney disease; I12.9 Hypertensive chronic kidney disease with stage 1 through stage 4 chronic kidney disease, or unspecified chronic kidney disease; N18.32 Chronic kidney disease, stage 3b; J44.9 Chronic obstructive pulmonary disease, unspecified; X58.XXXA Exposure to other specified factors, initial encounter
CPT/HCPCS: 73610; 99283; E0114

== ENCOUNTER → 2022-10-19 08:30 | Outpatient (BNVA) | payer MEDICARE, MEDICAID, SELFPAY | PROVIDERS: PCP Family Medicine; Visit Provider Podiatrist Foot & Ankle Surgery | DX: X50.9XXA Other and unspecified overexertion or strenuous movements or postures, initial encounter (principal); Z79.4 Long term (current) use of insulin; S93.402A Sprain of unspecified ligament of left ankle, initial encounter; E11.9 Type 2 diabetes mellitus without complications | CPT/HCPCS: 99214; L4361 ==

== ENCOUNTER 2022-10-23 05:51 | Outpatient (CLI) | payer MEDICARE, MEDICAID, SELFPAY ==
--- NOTE | 2022-10-23 06:30 | CT_ITS ---
WS: [id number] CT LUMBAR SPINE, noncontrast. HISTORY: M54.50 - Low back pain, unspecified TECHNIQUE: Contiguous 2.0 mm axial imaging are performed. Sagittal and coronal reformats are submitte d and reviewed. All CT scans at [facility] use at least one of these dose optimization techni ques: automated exposure control; mA and/or kV adjustment per patient size (includes targeted exams w here dose is matched to clinical indication); or iterative reconstruction. IV contrast: None DLP: 661.52 mGy.cm COMPARISON: None available. Slight increase in the lumbar lordosis. Posterior alignment is normal. No vertebral body fracture. Bi lateral pars defects at L5. Mild osteopenia. L1-2: Mild annular disc bulging with facet arthritis. No high-grade stenosis. L2-3: Mild annular disc bulging encroaching upon the subarticular recess. Mild central and bilateral subarticular recess stenosis. Moderate ligamentum flavum and facet arthropathy. Mild foraminal stenos is, RIGHT greater than LEFT. L3-4: Mild annular disc bulge with a RIGHT foraminal disc protrusion. Mild encroachment upon the vent ral thecal sac and RIGHT subarticular recess. Mild facet arthritis. Moderate RIGHT and mild LEFT fora asya stenosis. L4-5: Mild annular disc bulge with a very tiny central disc protrusion. Moderate ligamentum flavum an d moderate facet arthropathy. Moderate bilateral foraminal stenosis. L5-S1: Central disc protrusion without contact on the nerve roots. Moderate facet arthropathy. Mild t o moderate bilateral foraminal stenosis. Moderate size abdominal aortic aneurysm. Maximum diameter of 3.8 cm. Atrophic LEFT kidney. Bilateral renal masses. These may be cysts but cannot be further evaluated by CT. Mild thickening of the LEFT a drenal gland. Dorsal column stimulator. Partial fusion across the SI joints bilaterally. CT/CT lumbar spine wo con* [id number] IMPRESSION: 1. Bilateral pars defects at L5. 2. RIGHT foraminal disc protrusion at L3-4. Moderate RIGHT and mild LEFT jarad inal stenosis. 3. Mild encroachment upon the traversing RIGHT L4 nerve root and the exiting R IGHT L3 nerve root at the L3-4 level. 4. Multiple moderate bilateral foraminal stenosis at L5-S1. 5. Moderate bilateral foraminal stenosis at L4-5. 6. Mild central, bilateral subarticular recess and foraminal stenosis at L2-3. 7. Abdominal aortic aneurysm, 3.8 cm. 8. Moderate to severe atrophy LEFT kidney with bilateral renal cysts. Recommen d follow-up ultrasound of the kidneys.
== END 2022-10-23 05:52 | disposition home or self-care (01) ==
LOC: RAD 05:52
PROVIDERS: PCP Family Medicine; Visit Provider Anesthesiology Pain Medicine
DX: G89.29 Other chronic pain; M16.12 Unilateral primary osteoarthritis, left hip; M79.18 Myalgia, other site; M54.2 Cervicalgia; M51.26 Other intervertebral disc displacement, lumbar region; M54.9 Dorsalgia, unspecified; M48.061 Spinal stenosis, lumbar region without neurogenic claudication; I71.40 Abdominal aortic aneurysm, without rupture, unspecified; N28.1 Cyst of kidney, acquired; M48.07 Spinal stenosis, lumbosacral region
CPT/HCPCS: 20553; 72131; 99213; 99214; J1030; J3490

== ENCOUNTER → 2022-11-07 09:35 | Outpatient (BNVA) | payer MEDICARE, MEDICAID, SELFPAY | PROVIDERS: PCP Family Medicine; Visit Provider Podiatrist Foot & Ankle Surgery | DX: S93.402A Sprain of unspecified ligament of left ankle, initial encounter (principal); X58.XXXA Exposure to other specified factors, initial encounter; Z79.4 Long term (current) use of insulin; E11.9 Type 2 diabetes mellitus without complications | CPT/HCPCS: 99213 ==

== ENCOUNTER → 2022-11-29 10:08 | Outpatient (BNVA) | payer MEDICARE, MEDICAID, SELFPAY | PROVIDERS: PCP Family Medicine; Visit Provider Family Medicine | DX: E11.9 Type 2 diabetes mellitus without complications (principal); I10 Essential (primary) hypertension | CPT/HCPCS: 80053; 83036 ==

== ENCOUNTER → 2022-12-03 08:40 | Outpatient (BNVA) | payer MEDICARE, MEDICAID, SELFPAY | PROVIDERS: PCP Family Medicine; Visit Provider Internal Medicine Pulmonary Disease | DX: R91.8 Other nonspecific abnormal finding of lung field (principal); J45.40 Moderate persistent asthma, uncomplicated; G47.31 Primary central sleep apnea; I25.10 Atherosclerotic heart disease of native coronary artery without angina pectoris; J82.83 Eosinophilic asthma; F17.210 Nicotine dependence, cigarettes, uncomplicated; Z91.199 Patient's noncompliance with other medical treatment and regimen due to unspecified reason | CPT/HCPCS: 99214 ==